=== PATIENT | female | born 1960 | race Caucasian/White ===

== ENCOUNTER 2024-06-03 14:54 | Outpatient (AMB) | payer OTHER, SELFPAY ==
[2024-06-03 15:00] VITALS: BP 130/66; PULSE 71; O2SAT 98; BMI 38.8
--- NOTE | 2024-06-03 15:00 | MHC.PC.OV ---
Vital Signs 06/03/24 15:00 Height 5 ft 6 in Weight 240 lb 6 oz BMI 38.8 BP 130/66 Blood Pressure Location Lt brachial Position Sitting Pulse 71 Pulse Source Pulse Oximeter Pulse Oximetry (%) 98 Oxygen Delivery Method Room Air Intake Visit Reasons: TANGELA from [facility] Intake Note: Patient is here as a transfer from [facility]. Allergies acetaminophen [From Percocet] Adverse Reaction (Severe, Verified 06/03/24 15:08) addiction oxycodone [From Percocet] Adverse Reaction (Severe, Verified 06/03/24 15:08) addiction Tobacco use date assessed: 06/03/24 Dental Screening Dental Screen Date: 06/03/24 Did you have a dental visit in the last 12 months?: No Did you have a dental problem in the last 6 months where you did not have access to dental care?: No Was dental information given to patient?: Patient declined HPI HPI Comments History of Present Illness Details This is a 63-year-old female with a past medical history of SLE, COPD, hypertension, hyperlipidemia, prediabetes, GERD and tobacco use disorder presenting to transfer from my practice at [facility]. Patient sees pulmonology at [facility] for COPD. She takes Symbicort and albuterol as needed. She has in the LD CT program at [facility]. She is smoking, but she does not smoke at work. Her roommate smokes so it makes it difficult for her to quit though she has done well with patches. She still has some. She knows she needs to quit. She can not move right now during her current financial situation. She was contacted by Rheumatology in [place], but she has not called back to schedule her appointment yet for lupus. Flares in warmer months. FMLA forms redone for patient today. She is followed by Gastroenterology at [facility] for GERD. She has been seen in the hospital earlier this year for epigastric pain. She saw Cardiology who ruled out ACS. Pain was nonexertional, and no further cardiac workup was recommended. On PPI. Her blood pressure is good today on losartan. She is also taking atorvastatin 20 mg for hyperlipidemia. She suffered a meniscal tear of her right knee at work months ago and is seeing [facility]. ROS: Constitutional: No unexplained weight loss, fever, chills or night sweats. Respiratory: No shortness of breath, cough or sputum production. Cardiovascular: No chest pain, chest pressure or chest discomfort. No palpitations or pedal edema. Gastrointestinal: No anorexia, nausea, vomiting or diarrhea. No abdominal pain or blood in stool. Psychiatric: No depression or anxiety. No SI/HI. Physical exam: Constitutional: Alert, in no distress. Head: Normocephalic. Respiratory: Clear to auscultation. Cardiovascular: S1 S2 regular. No murmurs. Extremities: Warm and well perfused. No clubbing, cyanosis or edema. Psychiatric: Normal mood and affect [facility] Medical History (Updated 06/03/24 @ 16:56 by BRYAN Lemus) Tobacco use disorder T12 compression fracture Subclinical hyperthyroidism Severe obesity (BMI 35.0-39.9) with comorbidity Right knee meniscal tear Prediabetes Lupus Essential hypertension Pure hypercholesterolemia Hepatic steatosis Gastritis COPD (chronic obstructive pulmonary disease) Chronic abdominal pain Surgical History (Updated 06/03/24 @ 16:54 by BRYAN Lemus) History of History of cholecystectomy History of hysterectomy Family History (Updated 06/03/24 @ 16:55 by BRYAN Lemus) Mother Lung cancer Father Lung cancer Maternal Grandmother Diabetes mellitus Social History Housing: House Patient Tobacco Use Status: Current everyday Tobacco user Cigarettes Per Day: 4 e-Cigarette/Vaping Use: Never Used service: No Current occupational status: employed Cognitive needs: No Hearing needs: No Vision needs: Yes (Patient has coorctive.) Questionnaire Thrive Questionnaire Date Thrive assessed: 06/03/24 I am a: Patient Within the past 12 months, did the food you bought not last and you didn't have the money to get more?: Often true Within the past 12 months, did you worry whether your food would run out before you got money to buy more?: Sometimes True Do you have trouble paying for medicines?: No Do you have trouble getting transportation to medical appointments?: No Do you have trouble paying your heating and electricity bill?: No Do you have trouble taking care of your child, family member or friend?: No Do you have trouble with day-to-day activities such as bathing, preparing meals, shopping, managing finances, etc.?: No Are you currently unemployed and looking for a job?: No Are you interested in more education?: No THRIVE Score: 2 AUDIT C Alcohol Use Questionnaire (AUDIT-C) 1. How often do you have a drink containing alcohol?: Never 3. How often do you have six or more drinks on one occasion?: Never Total Score: 0 MONIQUE-7 AMB Questionnaire MONIQUE-7 Date MONIQUE - 7 assessed: 06/03/24 Feeling nervous, anxious, or on edge: 0 = Not at all Not being able to stop or control worryin = Not at all Worrying too much about different things: 0 = Not at all Trouble relaxin = Not at all Being so restless that it is hard to sit still: 0 = Not at all Becoming easily annoyed or irritable: 0 = Not at all Feeling afraid as if something awful might happen: 0 = Not at all Total MONIQUE-7 score (0-4 normal; 5-9 mild; 10-14 moderate; 15-21 severe): 0 Source: Developed by Drs. Alexandro Singh, Shruthi Cruz, Hebert Matute and colleagues, with an educational jorge from [employer]. Physical exam (Primary Care) Vital Signs: Last Vital Signs Pulse 71 06/03/24 15:00 BP 130/66 06/03/24 15:00 Pulse Ox 98 06/03/24 15:00 Oxygen Delivery Method Room Air 06/03/24 15:00 BMI result Body Mass Index 38.8 Tobacco/Smoking Status: Tobacco use Status Tobacco use date assessed 06/03/24 06/03/24 15:21 Patient Tobacco Use Status Current everyday Tobacco 06/03/24 15:21 e-Cigarette/Vaping Use Never Used 06/03/24 15:21 Assessment and Plan Assessment & Plan (1) Tobacco use disorder: Code(s): F17.200 - Nicotine dependence, unspecified, uncomplicated (2) Severe obesity (BMI 35.0-39.9) with comorbidity: Code(s): E66.01 - Morbid (severe) obesity due to excess calories (3) Prediabetes: Code(s): R73.03 - Prediabetes (4) Essential hypertension: Code(s): I10 - Essential (primary) hypertension (5) Lupus: Code(s): M32.9 - Systemic lupus erythematosus, unspecified (6) Pure hypercholesterolemia: Code(s): E78.00 - Pure hypercholesterolemia, unspecified (7) Gastritis: Code(s): K29.70 - Gastritis, unspecified, without bleeding Qualifiers: Gastritis type: other gastritis Chronicity: chronic Gastritis bleeding: without bleeding Qualified Code(s): K29.50 - Unspecified chronic gastritis without bleeding (8) COPD (chronic obstructive pulmonary disease): Code(s): J44.9 - Chronic obstructive pulmonary disease, unspecified Qualifiers: COPD type: chronic bronchitis Chronic bronchitis type: simple Qualified Code(s): J41.0 - Simple chronic bronchitis Plan Patient advised to continue her current medications. Refills provided. Follow up with Gastroenterology routinely. Strongly recommended scheduling consult with Rheumatology in [place]. She agreed to do so. FMLA forms completed for the patient. She will schedule a follow up in a few months. I will order labs at that visit. She is currently up-to-date on labs. Reviewed dietary recommendations for prediabetes, GERD, hypertension and high cholesterol. Strongly urge patient to focus on smoking cessation in the context of her comorbidities. She has the patch. Due for mammogram. Order given to pt to be done at [place]. Orders: Orders MM screening mammo BI Today Z12.31 - Encounter for screening mammogram for malignant neoplasm of breast Medications: New atorvastatin 20 mg PO DAILY 90 tabs 3RF losartan 25 mg PO DAILY 90 tabs 3RF Coding Level of Care Code Est Pt Level 4 (69726) Complex EM visit Add On G2211 Diagnoses Tobacco use disorder F17.200 Severe obesity (BMI 35.0-39.9) with comorbidity E66.01 Prediabetes R73.03 Essential hypertension I10 Lupus M32.9 Pure hypercholesterolemia E78.00 Other chronic gastritis without hemorrhage K29.50 Gastritis type: other gastritis Chronicity: chronic Gastritis bleeding: without bleeding Simple chronic bronchitis J41.0 COPD type: chronic bronchitis Chronic bronchitis type: simple
== END 2024-06-03 16:09 | disposition home or self-care (01) ==
PROVIDERS: PCP Physician Assistant Medical; Visit Provider Physician Assistant Medical
DX: R73.03 Prediabetes (principal); M32.9 Systemic lupus erythematosus, unspecified; E66.01 Morbid (severe) obesity due to excess calories; Z68.38 Body mass index [BMI] 38.0-38.9, adult; J41.0 Simple chronic bronchitis; I10 Essential (primary) hypertension; F17.200 Nicotine dependence, unspecified, uncomplicated; E78.00 Pure hypercholesterolemia, unspecified; K29.50 Unspecified chronic gastritis without bleeding
CPT/HCPCS: 99214; G2211

== ENCOUNTER 2024-08-12 14:24 | Outpatient (AMB) | payer OTHER, SELFPAY ==
--- NOTE | 2024-08-12 14:45 | A.OFFPC_ITS ---
Vital Signs 08/12/24 14:50 Height 5 ft 6 in Weight 232 lb 6 oz BMI 37.5 BP 128/74 Blood Pressure Location Lt brachial Position Sitting Respiration 14 Pulse 100 Pulse Source Pulse Oximeter Pulse Oximetry (%) 96 Oxygen Delivery Method Room Air Intake Visit Reasons: follow up lloyd Intake Note: Follow up. Was at [facility] ER 07/27/24 with Low potassium and magnesium levels . She needs a refill on potassium. Was prescribed magnesium 175 mg, but is taking 100mg because that is what she had at home. Allergies tramadol Allergy (Intermediate, Verified 08/12/24 15:16) hives acetaminophen [From Percocet] Adverse Reaction (Severe, Verified 08/12/24 14:45) addiction oxycodone [From Percocet] Adverse Reaction (Severe, Verified 08/12/24 14:45) addiction Tobacco use date assessed: 06/03/24 Dental Screening Dental Screen Date: 06/03/24 HPI HPI Comments History of Present Illness Details This is a 64-year-old female with a past medical history of subclinical hyperthyroidism, obesity, prediabetes, lupus, hypertension, hyperlipidemia, hepatic steatosis, gastritis and COPD presenting for ER follow up. The patient was evaluated at [facility] on 07/27/2024 for evaluation of numbness involving her face, bilateral upper extremities, jaw associated with headache and shortness of breath which started earlier that day. She had recently undergone right total knee replacement on 07/15/[address] Tee. Patient on prophylactic Eliquis postoperatively. Patient's D-dimer was elevated so CT angio was performed which was negative for PE. She was found to have profound hypomagnesemia and hypokalemia and hypocalcemia at 0.6, 2.5 and 7.8, respectively. EKG revealed no evidence of acute ischemic changes. Duplex ultrasound right lower extremity negative for DVT. Patient was treated with 2 g IV magnesium and IV potassium 10 mEq in 100 cc of normal saline. Repeat chemistries reveal potassium 3.2 and magnesium 1.3. She was discharged on calcium and vitamin-D 200 mg-250 IU 1 tablet twice daily, magnesium citrate 100 mg daily (the 85 mg 2 tab daily was not available) and potassium chloride 20 mEq use twice daily. She ran out of potassium yesterday so she is eating a lot of bananas. Her symptoms have not returned. She is doing physical therapy for her knee. She has an appointment with Dr. Tee 09/11/2024. She feels like her recovery is going very well. She had diarrhea for about a week leading up to the ER. This resolved. No vomiting. Patient was also seen in the ER about 3-4 months ago, and she says at that time she also had similar symptoms with low magnesium and low potassium but did not have any diarrhea proceeding this. She is not on diuretics. She does not drink alcohol. ROS: Constitutional: No unexplained weight loss, fever, chills, fatigue or night sweats. Eyes: No vision changes Respiratory: No shortness of breath Cardiovascular: No chest pain or palpitations Gastrointestinal: No anorexia, nausea, vomiting or diarrhea. No abdominal pain or blood in stool. Genitourinary: No dysuria, hematuria, urinary frequency. Neurologic: No headache, dizziness, syncope, numbness or tingling. Physical exam: Constitutional: Alert, in no distress. Neck: Supple, Full range of motion. No lymphadenopathy. Respiratory: Clear to auscultation. Cardiovascular: S1 S2 regular. No murmurs. Gastrointestinal: Abdomen soft, non-tender, non-distended. Normal bowel sounds. No palpable masses. Neurologic: No focal neurological deficits. Moves all extremities spontaneously. Sensation intact bilaterally. Musculoskeletal: Well-healed surgical scar on right anterior knee. No dehiscence. No erythema or swelling. Extremities: Warm and well perfused. No clubbing, cyanosis or edema Psychiatric: Normal mood and affect [facility] Medical History (Updated 08/12/24 @ 15:23 by BRYAN Lemus) Hypomagnesemia Hypocalcemia Hypokalemia Tobacco use disorder T12 compression fracture Subclinical hyperthyroidism Severe obesity (BMI 35.0-39.9) with comorbidity Right knee meniscal tear Prediabetes Lupus Essential hypertension Pure hypercholesterolemia Hepatic steatosis Gastritis COPD (chronic obstructive pulmonary disease) Chronic abdominal pain Surgical History (Updated 08/12/24 @ 15:23 by BRYAN Lemus) History of right knee joint replacement History of History of cholecystectomy History of hysterectomy Family History (Updated 06/03/24 @ 16:55 by BRYAN Lemus) Mother Lung cancer Father Lung cancer Maternal Grandmother Diabetes mellitus Social History Housing: House Patient Tobacco Use Status: Current everyday Tobacco user Cigarettes Per Day: 4 e-Cigarette/Vaping Use: Never Used service: No Current occupational status: employed Cognitive needs: No Hearing needs: No Vision needs: Yes (Patient has coorctive.) Questionnaire Thrive Questionnaire Date Thrive assessed: 06/03/24 AUDIT C Alcohol Use Questionnaire (AUDIT-C) 3. How often do you have six or more drinks on one occasion?: Never Total Score: 0 MONIQUE-7 AMB Questionnaire MONIQUE-7 Date MONIQUE - 7 assessed: 06/03/24 Source: Developed by Drs. Alexandro Singh, Shruthi Cruz, Hebert Matute and colleagues, with an educational jorge from [employer]. Physical exam (Primary Care) Vital Signs: Last Vital Signs Pulse 100 08/12/24 14:50 Resp 14 08/12/24 14:50 BP 128/74 08/12/24 14:50 Pulse Ox 96 08/12/24 14:50 Oxygen Delivery Method Room Air 08/12/24 14:50 BMI result Body Mass Index 37.5 Tobacco/Smoking Status: Tobacco use Status Tobacco use date assessed 06/03/24 08/12/24 15:01 Patient Tobacco Use Status Current everyday Tobacco 08/12/24 15:01 e-Cigarette/Vaping Use Never Used 08/12/24 15:01 Thrive Assessment: Date of Thrive Assessment Date Thrive assessed 06/03/24 08/12/24 15:01 Assessment and Plan Assessment & Plan (1) Hypomagnesemia: Code(s): E83.42 - Hypomagnesemia (2) Hypocalcemia: Code(s): E83.51 - Hypocalcemia (3) Hypokalemia: Code(s): E87.6 - Hypokalemia Plan Patient had profound hypokalemia and hypomagnesemia along with hypocalcemia which is more than I would expect for the diarrheal symptoms she was experiencing. I am also concerned about the previous episode 3 or 4 months ago at which time she had no GI losses. We will refer to nephrology for further evaluation. Check BMP, magnesium, vitamin-D, PTH. She is also due for additional labs so I ordered her TSH and A1c. She is not fasting so at lipid profile is deferred. Patient instructed to continue all supplements for now. I refilled her potassium. Instructed to return to ED if she has recurrent symptoms. Orders: Orders Basic Metabolic Panel Today E83.42 - Hypomagnesemia, E83.51 - Hypocalcemia, E87.6 - Hypokalemia, Z96.651 - Presence of right artificial knee joint Parathyroid Hormone Intact Today E83.51 - Hypocalcemia Hemoglobin A1c Today E05.90 - Thyrotoxicosis, unspecified without thyrotoxic crisis or storm, R73.03 - Prediabetes Vitamin D 1,25 dihydroxy Today E83.42 - Hypomagnesemia, E83.51 - Hypocalcemia, E87.6 - Hypokalemia, Z96.651 - Presence of right artificial knee joint Magnesium Today E83.42 - Hypomagnesemia, E83.51 - Hypocalcemia, E87.6 - Hypokalemia, Z96.651 - Presence of right artificial knee joint TSH reflex Free T4 Today E05.90 - Thyrotoxicosis, unspecified without thyrotoxic crisis or storm, R73.03 - Prediabetes Referrals Nephrology Referral E83.42 - Hypomagnesemia, E87.6 - Hypokalemia Medications: New potassium chloride ER 20 mEq PO BID 30 tabs 3RF Patient Instructions: [facility] [place] [address] Coding Level of Care Code Est Pt Level 4 (87565) Complex EM visit Add On G2211 Diagnoses Hypomagnesemia E83.42 Hypocalcemia E83.51 Hypokalemia E87.6
[2024-08-12 14:50] VITALS: BP 128/74; PULSE 100; RESP 14; O2SAT 96; BMI 37.5
== END 2024-08-12 15:44 | disposition home or self-care (01) ==
PROVIDERS: PCP Physician Assistant Medical; Visit Provider Physician Assistant Medical
DX: E83.42 Hypomagnesemia (principal); E83.51 Hypocalcemia; E87.6 Hypokalemia

== ENCOUNTER → 2024-08-12 14:24 | Outpatient (BNVA) | payer OTHER, SELFPAY | PROVIDERS: PCP Physician Assistant Medical; Visit Provider Physician Assistant Medical ==

== ENCOUNTER 2024-08-12 15:46 | Outpatient (REF) | payer OTHER, SELFPAY ==
[2024-08-12 18:54] LABS: Parathyroid Hormone Intact 38.1 pg/mL (8.7-77.1)
[2024-08-12 19:09] LABS: TSH reflex Free T4 0.07 uIU/mL (0.32-4.0)
[2024-08-12 22:24] LABS: Anion Gap 14 (12-20); Blood Urea Nitrogen 13 mg/dL (9-16); Calcium 9.9 mg/dL (8.4-10.2); Carbon Dioxide 26 mmol/L (22-29); Chloride 104 mmol/L (96-108); Estimated Glomerular Filt Rate > 60; Glucose Random 106 mg/dL (60-115); Potassium 3.7 mmol/L (3.3-5.1); Sodium 140 mmol/L (135-145)
[2024-08-12 23:01] LABS: Free T4 (Free Thyroxine) 1.19 ng/dL (0.71-1.85)
[2024-08-12 23:07] LABS: Magnesium 1.3 mg/dL (1.6-2.6)
[2024-08-13 07:41] LABS: Estimated Average Glucose 114 mg/dL; Hemoglobin A1c % 5.6 % (<6.0)
[2024-08-16 00:43] LABS: VITAMIN D (1,25 OH) D3 25 pg/mL; Vit D (1,25-Dihydroxy) Total 25 pg/mL (18-72); Vitamin D (1,25 OH) D2 <8 pg/mL
== END 2024-08-12 15:47 | disposition home or self-care (01) ==
LOC: HO.WFDLDS 15:46
PROVIDERS: Visit Provider Physician Assistant Medical
DX: E83.42 Hypomagnesemia (principal); R73.03 Prediabetes; E05.90 Thyrotoxicosis, unspecified without thyrotoxic crisis or storm; E83.51 Hypocalcemia; E87.6 Hypokalemia; Z96.651 Presence of right artificial knee joint
CPT/HCPCS: 36415; 80048; 82652; 83036; 83735; 83970; 84439; 84443

== ENCOUNTER 2024-08-19 09:49 | Outpatient (REF) | payer OTHER, SELFPAY ==
[2024-08-19 12:48] LABS: Magnesium 1.5 mg/dL (1.6-2.6); TSH reflex Free T4 0.04 uIU/mL (0.32-4.0)
[2024-08-19 13:23] LABS: Free T4 (Free Thyroxine) 1.15 ng/dL (0.71-1.85)
== END 2024-08-19 09:50 | disposition home or self-care (01) ==
LOC: HO.WFDLDS 09:49
PROVIDERS: Visit Provider Physician Assistant Medical
DX: E83.42 Hypomagnesemia (principal); E87.6 Hypokalemia; E05.90 Thyrotoxicosis, unspecified without thyrotoxic crisis or storm
CPT/HCPCS: 36415; 83735; 84132; 84439; 84443

== ENCOUNTER 2025-08-11 15:18 | Outpatient (REF) | payer OTHER, SELFPAY ==
[2025-08-11 19:35] LABS: Resp Syncy Virus RNA Qual PCR NEGATIVE (Negative); SARS COV2 PCR INHOUSE NEGATIVE (Negative)
== END 2025-08-11 15:19 | disposition home or self-care (01) ==
LOC: HO.LNP 15:18
PROVIDERS: PCP Physician Assistant Medical; Visit Provider Physician Assistant Medical
DX: Z00.00 Encounter for general adult medical examination without abnormal findings (principal); Z03.818 Encounter for observation for suspected exposure to other biological agents ruled out; R09.89 Other specified symptoms and signs involving the circulatory and respiratory systems; E78.00 Pure hypercholesterolemia, unspecified; I10 Essential (primary) hypertension; R73.03 Prediabetes; E05.90 Thyrotoxicosis, unspecified without thyrotoxic crisis or storm; E87.6 Hypokalemia; E83.42 Hypomagnesemia; M32.9 Systemic lupus erythematosus, unspecified; K29.50 Unspecified chronic gastritis without bleeding; K76.0 Fatty (change of) liver, not elsewhere classified; R22.2 Localized swelling, mass and lump, trunk
CPT/HCPCS: 87637; 96127

== ENCOUNTER 2025-08-11 15:18 | Outpatient (AMB) | payer OTHER, SELFPAY ==
--- NOTE | 2025-08-11 16:07 | MHC.PC.OV ---
Vital Signs 08/11/25 16:15 Height 5 ft 6 in Weight 233 lb 8 oz BMI 37.7 BP 110/68 Blood Pressure Location Lt brachial Position Sitting Respiration 15 Pulse 60 Pulse Source Pulse Oximeter Temp 97.4 F Temp Source Temporal Artery Scan Pulse Oximetry (%) 97 Oxygen Delivery Method Room Air Intake Visit Reasons: Annual PE Intake Note: Sari presents in the office today for her annual physical. Allergies tramadol Allergy (Intermediate, Verified 08/11/25 16:12) hives acetaminophen (From Percocet) Adverse Reaction (Severe, Verified 08/11/25 16:12) addiction oxycodone (From Percocet) Adverse Reaction (Severe, Verified 08/11/25 16:12) addiction Medication List - Last Reconciled 08/12/25 by BRYAN Lemus albuterol sulfate 90 mcg/actuation 2 puffs inhalation Q4H PRN atorvastatin 20 mg PO DAILY budesonide-formoterol 80-4.5 mcg/actuation 2 puffs inhalation BID ibuprofen 600 mg PO PRN losartan 25 mg PO DAILY magnesium chloride (Slow-Mag) 143 mg (2 x 71.5 mg) PO BID omeprazole 20 mg PO DAILY potassium chloride ER 20 mEq PO DAILY Tobacco use date assessed: 08/11/25 Dental Screening Dental Screen Date: 08/11/25 Did you have a dental visit in the last 12 months?: No Did you have a dental problem in the last 6 months where you did not have access to dental care?: No Was dental information given to patient?: Patient declined HPI HPI Comments History of Present Illness Details This is a 65-year-old female with a past medical history of SLE, COPD, hypertension, hyperlipidemia, prediabetes, GERD and tobacco use disorder presenting for a physical. She was last seen 06/03/2024 for an initial visit here after transferring from [facility]. She is renting a room in [facility] now, and she loves it there. COPD-previously followed by [facility] pulmonology. No recent visit. She is on Symbicort and albuterol as needed. She was doin LDCTs. She continues to smoke, and she is not prepared to quit. Denies interval ER visits or hospitalizations or systemic steroids. She was referred to Rheumatology multiple times between [facility] and [facility] for management of SLE, but she did not schedule the appointment. Flares and warmer months. Patient has FMLA for SLE. She has frequent muscle aches and fatigue. She has intermittent facial rash. She was diagnosed in 2006 and previously treated with hydroxychloroquine. No known history of blood clots or nephropathy. She is followed by Gastroenterology at [facility] for GERD. In 2023 she was seen there for epigastric pain. She saw Cardiology who ruled out ACS. She is on a chronic PPI. She thinks she may be due for colonoscopy this October. Hypertension is treated with losartan. Hyperlipidemia is treated with atorvastatin. She ran out of this medication recently. Patient endorses runny nose, scratchy throat and sneezing for the past 24 hours. It denies fevers, chills, productive cough, wheezing or shortness of breath. Patient endorses a lump on the right side of her back for 3-4 years. It is not painful. It is not enlarging. No history of trauma. Mammogram up-to-date. Due for bone density exam. This is ordered. 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 Her flu shot is scheduled 08/27/2025. She is also going to get a pneumonia vaccine at the pharmacy. We discussed other recommended vaccines including COVID-19, RSV and shingles. Tdap 10/26/2023. She has a history of hypokalemia and hypomagnesemia. She is on supplements. She was referred to Nephrology but did not go to this appointment. Denies diarrhea and vomiting. No weight loss. She had a right total knee replacement with Dr. Tee. Patient had low TSH 08/12/2024 and 08/19/2024. She has not followed by endocrinology, and she denies a history of hyperthyroidism. Denies palpitations, weight loss, sweating, increased anxiety or headaches. She was referred to endocrinology last year, but she did not have the appointment. ROS: Constitutional: No unexplained weight loss, fever, chills, night sweats. Endorses chronic fatigue. Eyes: No vision changes, blurry vision, double vision, eye pain, eye redness, eye discharge. ENT: Denies ear pain, sore throat, sinus pain. See HPI Respiratory: No shortness of breath, cough or sputum production. Cardiovascular: No chest pain, chest pressure or chest discomfort. No palpitations or pedal edema. Gastrointestinal: No anorexia, nausea, vomiting or diarrhea. No abdominal pain or blood in stool. Genitourinary: No dysuria, hematuria, urinary frequency. Neurologic: No headache, dizziness, syncope, unilateral weakness, ataxia, numbness or tingling in the extremities. Musculoskeletal: See HPI Hematologic/Lymphatics: No bleeding or bruising. No painful lymph nodes. Skin: See HPI Endocrine: No cold or heat intolerance. No polyuria or polydipsia. Psychiatric: Denies depression, SI/HI and anxiety. Physical exam: Constitutional: Alert, in no distress. Head: Normocephalic. Eyes: Pupils are equal, round and reactive to light. Extraocular muscles intact. Ear, Nose and Throat: Canals clear. TMs normal. Normal nasal mucosa. No nasal discharge. No oral lesions. No erythema, exudates or swelling in the throat. Neck: Supple, Full range of motion. No lymphadenopathy. No palpable thyroid masses. Respiratory: Clear to auscultation. Cardiovascular: S1 S2 regular. No murmurs. No carotid bruits. Gastrointestinal: Abdomen soft, non-tender, non-distended. Normal bowel sounds. No palpable masses. Neurologic: No focal neurological deficits. Symmetric patellar reflexes. Moves all extremities spontaneously. Sensation intact bilaterally. Back: There is a 2 cm x 1 cm soft, somewhat mobile lump on the right mid back. No overlying skin changes or erythema. It is nontender. Skin: Mild erythematous rash on the chin and cheeks Musculoskeletal: No gross deformities. Extremities: Warm and well perfused. No clubbing, cyanosis. Trace bilateral pretibial edema. Psychiatric: Normal mood and affect [facility] Medical History (Updated 08/12/25 @ 08:59 by BRYAN Lemus) Lump of skin of back Symptoms of upper respiratory infection (URI) Routine physical examination GERD (gastroesophageal reflux disease) Hypomagnesemia Hypocalcemia Hypokalemia Tobacco use disorder T12 compression fracture Subclinical hyperthyroidism Severe obesity (BMI 35.0-39.9) with comorbidity Right knee meniscal tear Prediabetes Lupus Essential hypertension Pure hypercholesterolemia Hepatic steatosis Gastritis COPD (chronic obstructive pulmonary disease) Chronic abdominal pain Surgical History (Updated 08/12/24 @ 15:23 by BRYAN Lemus) History of right knee joint replacement History of History of cholecystectomy History of hysterectomy Family History (Updated 08/11/25 @ 16:15 by Vidhya Smith [facility]) Mother Lung cancer Father Lung cancer Maternal Grandmother Diabetes mellitus Social History (Updated 08/11/25 @ 16:15 by Vidhya Smith [facility]) Housing: House Alcohol intake: never Patient Tobacco Use Status: Current everyday Tobacco user Cigarettes Per Day: 4 e-Cigarette/Vaping Use: Never Used Second Hand Smoke Exposure: Yes Use of substances other than those prescribed or required for medical reasons: No service: No Current occupational status: employed Cognitive needs: No Hearing needs: No Vision needs: Yes (Patient has coorctive.) Questionnaire PHQ-9 Over the last 2 weeks, how often have you been bothered by any of the following problems? 1. Little interest or pleasure in doing things: not at all 2. Feeling down, depressed, or hopeless: not at all 3. Trouble falling or staying asleep, or sleeping too much: not at all 4. Feeling tired or having little energy: nearly every day 5. Poor appetite or overeating: not at all 6. Feeling bad about yourself - or that you are a failure or have let yourself or your family down: more than half the days 7. Trouble concentrating on things, such as reading the newspaper or watching television: not at all 8. Moving or speaking so slowly that other people could have noticed. Or the opposite - being so fidgety or restless that you have been moving around a lot more than usual: not at all 9. Thoughts that you would be better off or of hurting yourself in some way: not at all Total score: 5 Depression Screening Interpretation: Positive Depression Screening Follow-up: Declines treatment Depression Screening Done: Yes 65408 - PHQ-9 Billing: Yes Source: Developed by Drs. Alexandro Singh, Shruthi Cruz, Hebert Matute and colleagues, with an educational jorge from [employer] Thrive Questionnaire Date Thrive assessed: 08/11/25 I am a: Patient What is your living situation today?: I have a steady place to live Within the past 12 months, did the food you bought not last and you didn't have the money to get more?: Sometimes True Within the past 12 months, did you worry whether your food would run out before you got money to buy more?: Sometimes True Do you have trouble paying for medicines?: No Do you have trouble getting transportation to medical appointments?: No Do you have trouble paying your heating and electricity bill?: No Do you have trouble taking care of your child, family member or friend?: No Do you have trouble with day-to-day activities such as bathing, preparing meals, shopping, managing finances, etc.?: No Are you currently unemployed and looking for a job?: No Are you interested in more education?: No Please select the resources that you would like help with: None Currently or been in a relationship where the following occur: No concerns reported THRIVE Score: 2 AUDIT C Alcohol Use Questionnaire (AUDIT-C) 1. How often do you have a drink containing alcohol?: Never 3. How often do you have six or more drinks on one occasion?: Never Total Score: 0 MONIQUE-7 AMB Questionnaire MONIQUE-7 Date MONIQUE - 7 assessed: 08/11/25 Feeling nervous, anxious, or on edge: 0 = Not at all Not being able to stop or control worryin = Not at all Worrying too much about different things: 0 = Not at all Trouble relaxin = Not at all Being so restless that it is hard to sit still: 0 = Not at all Becoming easily annoyed or irritable: 0 = Not at all Feeling afraid as if something awful might happen: 0 = Not at all Total MONIQUE-7 score (0-4 normal; 5-9 mild; 10-14 moderate; 15-21 severe): 0 Source: Developed by Drs. Alexandro Singh, Shruthi Cruz, Hebert Matute and colleagues, with an educational jorge from [employer] MONIQUE-7 Assessment Billing MONIQUE-7 Assessment Tool: MONIQUE-7 Assessment 32120 Physical exam (Primary Care) Vital Signs: Last Vital Signs Temp 97.4 F 08/11/25 16:15 Pulse 60 08/11/25 16:15 Resp 15 08/11/25 16:15 BP 110/68 08/11/25 16:15 Pulse Ox 97 08/11/25 16:15 Oxygen Delivery Method Room Air 08/11/25 16:15 BMI result Body Mass Index 37.7 Tobacco/Smoking Status: Tobacco use Status Tobacco use date assessed 08/11/25 08/11/25 16:19 Patient Tobacco Use Status Current everyday Tobacco 08/11/25 16:15 e-Cigarette/Vaping Use Never Used 08/11/25 16:15 PHQ-9: PHQ-9 Score PHQ-9: Total score 5 08/12/25 08:57 Depression Screening Interpretation: Positive Depression Screening Follow-up: Declines treatment Thrive Assessment: Date of Thrive Assessment Date Thrive assessed 08/11/25 08/11/25 16:09 Currently or been in a relationship where the following occur: No concerns reported Coding Level of Care Code Est Pt Level 4 (15943) Est Pt Prev Care 40-64y(16910) Diagnoses Routine physical examination Z00.00 Pure hypercholesterolemia E78.00 Essential hypertension I10 Prediabetes R73.03 Subclinical hyperthyroidism E05.90 Hypokalemia E87.6 Hypomagnesemia E83.42 Lupus M32.9 Other chronic gastritis without hemorrhage K29.50 Chronicity: chronic Gastritis bleeding: without bleeding Gastritis type: other gastritis Hepatic steatosis K76.0 Symptoms of upper respiratory infection (URI) R09.89 Lump of skin of back R22.2 Additional Codes MONIQUE-7 Assessment Billing - MONIQUE-7 Assessment Tool: MONIQUE-7 Assessment 37618 ([id number]) PHQ-9 - 00346 - PHQ-9 Billing: Yes ([id number]) Assessment & Plan Assessment & Plan (1) Routine physical examination: Code(s): Z00.00 - Encounter for general adult medical examination without abnormal findings Category: Medical Plan: Patient is seen today for a routine physical. As part of this visit we reviewed the following issues, which are considered and essential part of preventative health in this age group: - Breast Cancer screening - Annual Ostrich Farmer exam - Screening for colon cancer - Blood pressure screening - Cholesterol screening - Osteoporosis prevention including calcium/vitamin D intake, weight bearing exercise & smoking cessation - Nutritional and exercise counseling - Counseling of injury prevention including fire prevention, smoke alarms and seat belt usage - Screening for depression - Education about skin cancer - Recommendations about immunizations - Recommendation of an eye exam - Screening for substance abuse (2) Pure hypercholesterolemia: Code(s): E78.00 - Pure hypercholesterolemia, unspecified Category: Medical Plan: Continue atorvastatin. Recommended Mediterranean diet and limiting portion sizes to promote weight loss. Check lipid panel. (3) Essential hypertension: Code(s): I10 - Essential (primary) hypertension Category: Medical Plan: Controlled. Continue losartan 25 mg daily. Recommended low-sodium diet and encouraged weight loss. (4) Prediabetes: Code(s): R73.03 - Prediabetes Category: Medical Plan: Limit portion sizes, follow a low carbohydrate, low sugar diet. Avoid alcohol. Check hemoglobin A1c. She may be a good to ended it for metformin a GLP 1. We will review this when labs return. (5) Subclinical hyperthyroidism: Code(s): E05.90 - Thyrotoxicosis, unspecified without thyrotoxic crisis or storm Category: Medical Plan: Recheck TSH and refer to endocrinology and new if this is persistently abnormal. (6) Hypokalemia: Code(s): E87.6 - Hypokalemia Category: Medical Plan: Continue supplementation. Check renal function and potassium level. Refer anew to Nephrology. (7) Hypomagnesemia: Code(s): E83.42 - Hypomagnesemia Category: Medical Plan: Continue supplement. Check magnesium and renal function. Referred anew to Nephrology. (8) Lupus: Code(s): M32.9 - Systemic lupus erythematosus, unspecified Category: Medical Plan: I reviewed the importance of following up with Rheumatology for treatment. Referred anew to [facility]ology group (9) Gastritis: Code(s): K29.70 - Gastritis, unspecified, without bleeding Category: Medical Qualifiers: Chronicity: chronic Gastritis bleeding: without bleeding Gastritis type: other gastritis Qualified Code(s): K29.50 - Unspecified chronic gastritis without bleeding Plan: Continue PPI. Refer back to Gastroenterology. Avoid spicy and acidic foods. Avoid NSAIDs. (10) Hepatic steatosis: Code(s): K76.0 - Fatty (change of) liver, not elsewhere classified Category: Medical Plan: Recommended avoidance of high cholesterol foods. Avoid processed foods. Eat high-fiber diet with lean proteins. Avoid alcohol. Check liver function and refer back to Gastroenterology. (11) Symptoms of upper respiratory infection (URI): Code(s): R09.89 - Other specified symptoms and signs involving the circulatory and respiratory systems Category: Medical Plan: Tested for COVID/RSV/flu. Supportive care reviewed with the patient. Warning signs warranting follow up reviewed. (12) Lump of skin of back: Code(s): R22.2 - Localized swelling, mass and lump, trunk Category: Medical Plan: Differential includes lipoma, cyst and less likely malignancy. Advised patient we should obtain ultrasound to confirm diagnosis, but she declined. Patient said she will call if it changes in size or becomes painful. We can recheck this at her follow up appointment. Plan Follow up in 3 months. Orders: Orders Complete Blood Count Auto Diff 08/11/25 E05.90 - Thyrotoxicosis, unspecified without thyrotoxic crisis or storm, E78.00 - Pure hypercholesterolemia, unspecified, E83.42 - Hypomagnesemia, E83.51 - Hypocalcemia, E87.6 - Hypokalemia, I10 - Essential (primary) hypertension, R73.03 - Prediabetes Comprehensive Met. Panel 08/11/25 E05.90 - Thyrotoxicosis, unspecified without thyrotoxic crisis or storm, E78.00 - Pure hypercholesterolemia, unspecified, E83.42 - Hypomagnesemia, E83.51 - Hypocalcemia, E87.6 - Hypokalemia, I10 - Essential (primary) hypertension, R73.03 - Prediabetes Lipid Panel 08/11/25 E05.90 - Thyrotoxicosis, unspecified without thyrotoxic crisis or storm, E78.00 - Pure hypercholesterolemia, unspecified, E78.5 - Hyperlipidemia, unspecified, E83.42 - Hypomagnesemia, E83.51 - Hypocalcemia, E87.6 - Hypokalemia, I10 - Essential (primary) hypertension, R73.03 - Prediabetes Rheumatoid Factor 08/11/25 M32.9 - Systemic lupus erythematosus, unspecified Erythrocyte Sedimentation Rate 08/11/25 M32.9 - Systemic lupus erythematosus, unspecified Hemoglobin A1c 08/11/25 R73.9 - Hyperglycemia, unspecified XR DEXA axial skeleton Today Z78.0 - Asymptomatic menopausal state TSH reflex Free T4 08/11/25 E05.90 - Thyrotoxicosis, unspecified without thyrotoxic crisis or storm, E78.00 - Pure hypercholesterolemia, unspecified, E83.42 - Hypomagnesemia, E83.51 - Hypocalcemia, E87.6 - Hypokalemia, I10 - Essential (primary) hypertension, R73.03 - Prediabetes Lipase 08/11/25 E05.90 - Thyrotoxicosis, unspecified without thyrotoxic crisis or storm, E78.00 - Pure hypercholesterolemia, unspecified, E83.42 - Hypomagnesemia, E83.51 - Hypocalcemia, E87.6 - Hypokalemia, I10 - Essential (primary) hypertension, R73.03 - Prediabetes Amylase 08/11/25 E05.90 - Thyrotoxicosis, unspecified without thyrotoxic crisis or storm, E78.00 - Pure hypercholesterolemia, unspecified, E83.42 - Hypomagnesemia, E83.51 - Hypocalcemia, E87.6 - Hypokalemia, I10 - Essential (primary) hypertension, R73.03 - Prediabetes Magnesium 08/11/25 E83.42 - Hypomagnesemia DAYANA Reflex Titer and Pattern 08/11/25 M32.9 - Systemic lupus erythematosus, unspecified SARS-CoV2/FLU/RSV 08/11/25 R09.89 - Other specified symptoms and signs involving the circulatory and respiratory systems Referrals Rheumatology Referral M32.9 - Systemic lupus erythematosus, unspecified Gastroenterology Referral R19.7 - Diarrhea, unspecified Nephrology Referral E83.42 - Hypomagnesemia, E87.6 - Hypokalemia Pulmonology Referral F17.200 - Nicotine dependence, unspecified, uncomplicated, J41.0 - Simple chronic bronchitis Medications: New albuterol sulfate 90 mcg/actuation 2 puffs inhalation Q4H PRN 8.5 grams 0RF shortness of breath or wheezing budesonide-formoterol 80-4.5 mcg/actuation 2 puffs inhalation BID 10.2 grams 5RF Refilled atorvastatin 20 mg PO DAILY 90 tabs 3RF losartan 25 mg PO DAILY 90 tabs 3RF potassium chloride ER 20 mEq PO DAILY 90 tabs 1RF atorvastatin 20 mg PO DAILY 90 tabs 3RF losartan 25 mg PO DAILY 90 tabs 3RF budesonide-formoterol 80-4.5 mcg/actuation 2 puffs inhalation BID 10.2 grams 11RF
[2025-08-11 16:15] VITALS: BP 110/68; PULSE 60; RESP 15; TEMP 36.3; O2SAT 97; BMI 37.7
== END 2025-08-11 17:16 | disposition home or self-care (01) ==
LOC: HO.HMCFM 15:19
PROVIDERS: PCP Physician Assistant Medical; Visit Provider Physician Assistant Medical
DX: Z00.00 Encounter for general adult medical examination without abnormal findings (principal); E78.00 Pure hypercholesterolemia, unspecified; M32.9 Systemic lupus erythematosus, unspecified; I10 Essential (primary) hypertension; R73.03 Prediabetes; E05.90 Thyrotoxicosis, unspecified without thyrotoxic crisis or storm; E87.6 Hypokalemia; E83.42 Hypomagnesemia; K29.50 Unspecified chronic gastritis without bleeding; K76.0 Fatty (change of) liver, not elsewhere classified; R09.89 Other specified symptoms and signs involving the circulatory and respiratory systems; R22.2 Localized swelling, mass and lump, trunk